=== PATIENT | female | born 1965 | race African-American/Black ===

== ENCOUNTER 2020-01-27 21:57 | Emergency (ER) | payer SELFPAY ==
[~2020-01-27] VITALS: Ht 177.8 cm; Wt 64.9 kg
[2020-01-27 22:16] VITALS: BP 118/72
--- NOTE | 2020-01-27 22:16 | NUR ---
ED Nurse Note: Patient walked in to ED requesting for a shot of invega. Patient aao x 4 and ambulatory. Patient was seen at [facility] 4 hours ago today. Patient no acute distress noted.
--- NOTE | 2020-01-27 22:22 | Emergency Room Report ---
History of Present Illness General Chief Complaint: Medication Refill Source: Patient Present Illness HPI 54-year-old female with a history of schizophrenia. She came in wanting a shot of her psych medication. She checked then and went to the room and promptly got up and left. I did not see this patient. This is second time she did this today. Allergies: Coded Allergies: No Known Allergies (Unverified , 01/27/20) COVID-19 Screening Contact w/high risk pt: No Experienced COVID-19 symptoms?: No COVID-19 Testing performed RISK MANAGEMENT SPECIALIST: No Nursing Documentation-[facility] History Of Psychiatric Problem: Yes - schizophrenia Physical Exam Vital Signs Date Time Temp Pulse Resp B/P (MAP) Pulse Ox O2 Delivery O2 Flow Rate FiO2 01/27/20 22:04 98.4 87 18 111/69 (83) 97 Room Air Medical Decision Making Diagnostic Impression: Primary Impression: Encounter for medication refill Additional Impression: Patient left without being seen Last Vital Signs Date Time Temp Pulse Resp B/P (MAP) Pulse Ox O2 Delivery O2 Flow Rate FiO2 01/27/20 22:04 98.4 87 18 111/69 (83) 97 Room Air Status: unchanged Disposition: LEFT W/OUT BEING SEEN Condition: Stable Florencio Kwok MD Jan 27, 2020 22:22
== END 2020-01-27 22:30 | disposition left against medical advice (07) ==
LOC: EMR 22:23
DX: Z76.0 Encounter for issue of repeat prescription (principal); Z53.21 Procedure and treatment not carried out due to patient leaving prior to being seen by health care provider

== ENCOUNTER → 2020-01-27 | Emergency (ER) | payer SELFPAY ==
[~2020-01-27] VITALS: Ht 177.8 cm; Wt 69.4 kg
[~2020-01-27] MED LIST: FUROSEMIDE20 M1 ORAL; K-DUR20 MEQ ORAL
--- NOTE | 2020-01-27 14:47 | NUR ---
ED Nurse Note: Called patient. patient not in waiting room.
--- NOTE | 2020-01-27 15:01 | NUR ---
ED Nurse Note: Patient in restroom.
[2020-01-27 15:41] VITALS: BP 115/69
--- NOTE | 2020-01-27 15:41 | NUR ---
ED Nurse Note: Pt walked in to er from the street. per pt. she is here for [facility].
[2020-01-27 16:04] VITALS: BP 115/69
--- NOTE | 2020-01-27 16:04 | NUR ---
ED Nurse Note: Pt left without being seen by ERMD. Pt AAOx4, ambulatory and took all personal belongings.
--- NOTE | 2020-01-27 22:11 | Emergency Room Report ---
History of Present Illness General Chief Complaint: Medication Refill Source: Patient Present Illness Allergies: Coded Allergies: No Known Allergies (Unverified , 01/27/20) COVID-19 Screening Contact w/high risk pt: No Experienced COVID-19 symptoms?: No COVID-19 Testing performed RIGGING SLINGER: No Nursing Documentation-[facility] Past Medical History: No History, Except For History Of Psychiatric Problem: Yes Physical Exam Vital Signs Date Time Temp Pulse Resp B/P (MAP) Pulse Ox O2 Delivery O2 Flow Rate FiO2 01/27/20 15:37 98.2 82 19 115/69 (84) 98 Room Air Medical Decision Making Diagnostic Impression: Primary Impression: Patient left without being seen ER Course Patient left without being seen Last Vital Signs Date Time Temp Pulse Resp B/P (MAP) Pulse Ox O2 Delivery O2 Flow Rate FiO2 01/27/20 16:04 98.2 19 115/69 98 Room Air 01/27/20 15:41 82 Status: unchanged Disposition: LEFT W/OUT BEING SEEN Condition: Stable Referrals: NOT CHOSEN IPA/,REFERRING (PCP) Wil Torres MD Jan 27, 2020 22:11
== END | disposition left against medical advice (07) ==
LOC: EMR 16:00
DX: Z76.0 Encounter for issue of repeat prescription (principal); Z53.21 Procedure and treatment not carried out due to patient leaving prior to being seen by health care provider

== ENCOUNTER 2020-01-29 12:37 | Emergency (ER) | payer SELFPAY ==
[~2020-01-29] VITALS: Ht 167.6 cm; Wt 60.3 kg
[2020-01-29 13:00] VITALS: BP 98/62
--- NOTE | 2020-01-29 13:00 | NUR ---
ED Nurse Note: Pt brought in by ambulance from the streets after walking into traffic. Pt reports hearing voices. Pt denies HI/SI at this time. Pt reports hx of schizophrenia and is non compliant with meds since being released from [facility]. Pt refers to self in 3rd person. Calm and cooperative. Respirations even and unlabored on room air. Vitals stable as documented. A+Ox4.
--- NOTE | 2020-01-29 13:54 | NUR ---
ED Nurse Note: sandwiches and juices provided to patient. Spoke with patient regarding 5150 status. Pt aware of need to stay in her room and that she cannot leave d/t hold. Pt aware and verbalized understanding, saying "I won't go anywhere. I have been on 5150 before."
--- NOTE | 2020-01-29 14:24 | NUR ---
ED Nurse Note: pt placed in psych gown. Belongings placed in psych locker 1.
[2020-01-29 15:00] VITALS: BP 106/69
--- NOTE | 2020-01-29 16:14 | Emergency Room Report ---
History of Present Illness General Chief Complaint: Behavioral Complaint Source: Patient Present Illness HPI 54 YO Female presents to the ED on 5150 hold by [employer]. She is reporting increasing depression, anxiety and auditory hallucinations. Patient reports in September she did receive Invega injection which did help her however she was unable to have follow-up or receive additional doses. She reports previous psychiatric hospitalizations. Denies drug use. She reports increased depression and having difficulty concentrating. She denies SI or HI at the moment. She was placed on hold by PD for danger to self as she was responding to internal stimuli and walking out into the middle of the street with traffic. Patient describes hearing voices of people that she recognizes however not knowing where they are. No other aggravating or relieving factors. Allergies: Coded Allergies: No Known Allergies (Unverified , 01/27/20) COVID-19 Screening Contact w/high risk pt: No Experienced COVID-19 symptoms?: No COVID-19 Testing performed BRANCH ACCOUNT MANAGER: No Patient History Past Medical History: see triage record, psych hx Past Surgical History: none Pertinent Family History: none Last Menstrual Period: unk Now: No Reviewed Nursing Documentation: PMH: Agreed; PSxH: Agreed Nursing Documentation-PMH Past Medical History: No History, Except For History Of Psychiatric Problem: Yes - schizophrenia Review of Systems All Other Systems: negative except mentioned in HPI Physical Exam Vital Signs Date Time Temp Pulse Resp B/P (MAP) Pulse Ox O2 Delivery O2 Flow Rate FiO2 01/29/20 12:45 98.4 85 16 89/60 (70) 97 Room Air Sp02 EP Interpretation: reviewed, normal General Appearance: no apparent distress, alert, GCS 15, non-toxic, other - Disheveled Head: normocephalic, atraumatic Eyes: bilateral eye normal inspection, bilateral eye PERRL ENT: hearing grossly normal, normal voice Neck: full range of motion Respiratory: lungs clear, normal breath sounds, no respiratory distress, no wheezing, speaking full sentences Cardiovascular #1: regular rate, rhythm, edema - bilateral non-pitting edema to the feet. 2+ Gastrointestinal: normal bowel sounds, non tender, soft, non-distended, no guarding Rectal: deferred Genitourinary: normal inspection, no CVA tenderness Musculoskeletal: back normal, normal range of motion, gait/station normal, non- tender Neurologic: alert, motor strength/tone normal, oriented x3, sensory intact, responsive, speech normal Psychiatric: judgement/insight normal, no suicidal/homicidal ideation, depressed affect, other - Pt. midway through eval, began talking about herself in 3rd person. She will at times stare off in silence in the middle of a sentence. Suicide Risk Assessment: Suicidal Ideation: No Had intent to initiate attempt: Yes Pt's plan for suicide attempt: No Has means to complete attempt: Yes Skin: no rash, normal color Medical Decision Making PA Attestation Dr. Torres is my supervising Physician whom patient management has been discussed with. Diagnostic Impression: Primary Impression: Behavioral disorder ER Course 54 YO Female presents to the ED on 5150 hold by [employer]. She is reporting increasing depression, anxiety and auditory hallucinations. Patient reports in September she did receive Invega injection which did help her however she was unable to have follow-up or receive additional doses. She reports previous psychiatric hospitalizations. Denies drug use. She reports increased depression and having difficulty concentrating. She denies SI or HI at the moment. She was placed on hold by PD for danger to self as she was responding to internal stimuli and walking out into the middle of the street with traffic. Patient describes hearing voices of people that she recognizes however not knowing where they are. No other aggravating or relieving factors. Pt. presents to the ED c/o anxiety, restlessness, and nightmares s/p starting back on his medications after abruptly stopping them for 1 week while incarcerated. his medications are: ativan and citalopram. Pt is hyperactive, and has a very anxious and restless affect. Ddx considered but are not limited to OD, SI/HI, psychosis, UTI, intoxication Vital signs: are WNL, pt. is afebrile. H&PE are most consistent with behavioral/mental health issue. Pt. is responding to internal stimuli on occasion. ORDERS: -CBC, CMP: WNL -UA: negative for infection see results attached. -UDS: all negative -Salicylates and Acetaminophen - no acute intoxication. ED INTERVENTIONS: -None required at this time. Patient has been cooperative. DISPOSITION: The patient is medically cleared for psychiatric evaluation and placement Labs Test 01/29/20 15:00 01/29/20 16:00 White Blood Count 6.1 K/UL (4.8-10.8) Red Blood Count 3.68 M/UL (4.20-5.40) Hemoglobin 11.1 G/DL (12.0-16.0) Hematocrit 34.7 % (37.0-47.0) Mean Corpuscular Volume 94 FL (80-99) Mean Corpuscular Hemoglobin 30.0 PG (27.0-31.0) Mean Corpuscular Hemoglobin Concent 31.9 G/DL (32.0-36.0) Red Cell Distribution Width 13.5 % (11.6-14.8) Platelet Count 254 K/UL (150-450) Mean Platelet Volume 7.3 FL (6.5-10.1) Neutrophils (%) (Auto) 72.4 % (45.0-75.0) Lymphocytes (%) (Auto) 15.7 % (20.0-45.0) Monocytes (%) (Auto) 10.0 % (1.0-10.0) Eosinophils (%) (Auto) 0.8 % (0.0-3.0) Basophils (%) (Auto) 1.0 % (0.0-2.0) Sodium Level 142 MMOL/L (136-145) Potassium Level 3.8 MMOL/L (3.5-5.1) Chloride Level 106 MMOL/L (98-107) Carbon Dioxide Level 28 MMOL/L (21-32) Anion Gap 8 mmol/L (5-15) Blood Urea Nitrogen 12 mg/dL (7-18) Creatinine 0.8 MG/DL (0.55-1.30) Estimat Glomerular Filtration Rate > 60 mL/min (>60) Glucose Level 106 MG/DL (74-106) Calcium Level 8.8 MG/DL (8.5-10.1) Total Bilirubin 0.4 MG/DL (0.2-1.0) Aspartate Amino Transf (AST/SGOT) 32 U/L (15-37) Alanine Aminotransferase (ALT/SGPT) 32 U/L (12-78) Alkaline Phosphatase 76 U/L (46-116) Total Protein 8.0 G/DL (6.4-8.2) Albumin 3.5 G/DL (3.4-5.0) Globulin 4.5 g/dL Albumin/Globulin Ratio 0.8 (1.0-2.7) Salicylates Level 1.9 ug/mL (2.8-20) Acetaminophen Level < 2 MCG/ML (10-30) Serum Alcohol < 3 mg/dL Urine Opiates Screen Negative (NEGATIVE) Urine Barbiturates Screen Negative (NEGATIVE) Phencyclidine (PCP) Screen Negative (NEGATIVE) Urine Amphetamines Screen Negative (NEGATIVE) Urine Benzodiazepines Screen Negative (NEGATIVE) Urine Cocaine Screen Negative (NEGATIVE) Urine Marijuana (THC) Screen Negative (NEGATIVE) Last Vital Signs Date Time Temp Pulse Resp B/P (MAP) Pulse Ox O2 Delivery O2 Flow Rate FiO2 01/29/20 12:45 98.4 85 16 89/60 (70) 97 Room Air Disposition: HOME, SELF-CARE Condition: Stable Signed Out To: Belle Foster Jan 29, 2020 16:14
[2020-01-29 17:00] VITALS: BP 109/72
[2020-01-29 17:20] LABS: EOSINOPHILS % (AUTO) 0.8 % (0.0-3.0); HEMATOCRIT 34.7 % (37.0-47.0); HEMOGLOBIN 11.1 G/DL (12.0-16.0); LYMPHOCYTES % (AUTO) 15.7 % (20.0-45.0); MEAN CORPUSCULAR VOLUME 94 FL (80-99); NEUTROPHILS % (AUTO) 72.4 % (45.0-75.0); PLATELET COUNT 254 K/UL (150-450); RED BLOOD COUNT 3.68 M/UL (4.20-5.40); RED CELL DISTRIBUTION WIDTH 13.5 % (11.6-14.8); WHITE BLOOD COUNT 6.1 K/UL (4.8-10.8)
[2020-01-29 17:23] LABS: ANION GAP 8 mmol/L (5-15); BLOOD UREA NITROGEN 12 mg/dL (7-18); CALCIUM 8.8 MG/DL (8.5-10.1); CARBON DIOXIDE 28 MMOL/L (21-32); CHLORIDE 106 MMOL/L (98-107); CREATININE 0.8 MG/DL (0.55-1.30); POTASSIUM 3.8 MMOL/L (3.5-5.1); SODIUM 142 MMOL/L (136-145)
[2020-01-29 17:27] LABS: ALANINE AMINOTRANSFERASE 32 U/L (12-78); ALBUMIN 3.5 G/DL (3.4-5.0); ALBUMIN/GLOBULIN RATIO 0.8 (1.0-2.7); ALKALINE PHOSPHATASE 76 U/L (46-116); ASPARTATE AMINO TRANSFERASE 32 U/L (15-37); BILIRUBIN,TOTAL 0.4 MG/DL (0.2-1.0)
--- NOTE | 2020-01-29 19:11 | NUR ---
HAND-OFF: Report given to CORWIN Schultz. Pt in stable condition; plan of care endorsed.
--- NOTE | 2020-01-29 19:30 | NUR ---
ED Nurse Note: Recieved report from am nurse to resume care, pt is sitting on side of bed, awake and alert, pt is on 5150 hold and waiting for psych placement for suicidal ideations, pt refers to herself as "her" and states she remains suicidal and denies homicidal ideations and has noted auditory halluciantions as pt speaks to self, denies pain, has sitter at bedside for constant observatons, room environment checked, will resume care and continue to closely monitor under precutions.
[2020-01-29 23:00] VITALS: BP 104/66
--- NOTE | 2020-01-29 23:00 | NUR ---
ED Nurse Note: Pt continues to sleep quietly, no sob or lbored breathing noted, v/s taken, no acute changes or increased distress noted, pt is on 5150 hold with suicidal precautions, sitter remains at bedside for constant observation, will continue to monitor while pt waiting for psych placement.
--- NOTE | 2020-01-30 03:10 | NUR ---
ED Nurse Note: Pt suddennly awakened in room, jumped out of bed and stating "ok im ready", pt still appears to be under the influence, pt offered food and water, refused and followed commands to go back to bed without complications, pt remains on S.I. precautions, no attempts or changes made, sitter at bedside, will continue to closely monitor under S.I. precautions.
[2020-01-30 06:00] VITALS: BP 108/59
--- NOTE | 2020-01-30 06:00 | NUR ---
ED Nurse Note: No acute changes or increased distress noted, pt continues to sleep in bed, sitter at bedside, pt remains on 5150 hold and suicidal precautions, pt is waiting for psych placement, will continue to monitor for any acute changes or distress.
--- NOTE | 2020-01-30 08:05 | NUR ---
ED Nurse Note:pt. is awake ,had her breakfast, compliant with treatment, sitter is at the bed side
--- NOTE | 2020-01-30 09:55 | Emergency Room Report ---
Physical Exam Vital Signs Date Time Temp Pulse Resp B/P (MAP) Pulse Ox O2 Delivery O2 Flow Rate FiO2 01/29/20 12:45 98.4 85 16 89/60 (70) 97 Room Air Medical Decision Making Homeless Attestation Patient is marcus. Patient has been medically screened and is stable for outpatient follow up Diagnostic Impression: Primary Impression: Behavioral disorder ER Course Assumed care of the patient from the previous provider at approximately 0 600. Please refer to initial note for full history and physical exam. Briefly, 54-year-old female history of psychiatric disorder presenting for anxiety and auditory hallucinations as well as worsening depression. She was placed on 5150 hold by [employer] for lying in the middle of the street. At the time of signout labs have returned within normal limits and the patient is medically cleared for psychiatric evaluation. Dr. Montilla has evaluated the patient and determined she is not danger to self and may be discharged. She recommended 100 mg of Haldol decanoate however the patient refused stating that she was taking Invega and does not want to mix medications. Patient would like to try to get herself into a psychiatric center on her own. She is requesting referrals and discharge but will try to go back to the psychiatric facility she previously was admitted to where she states she can continue getting the Invega. Laboratory Tests Test 01/29/20 15:00 01/29/20 16:00 White Blood Count 6.1 K/UL (4.8-10.8) Red Blood Count 3.68 M/UL (4.20-5.40) L Hemoglobin 11.1 G/DL (12.0-16.0) L Hematocrit 34.7 % (37.0-47.0) L Mean Corpuscular Volume 94 FL (80-99) Mean Corpuscular Hemoglobin 30.0 PG (27.0-31.0) Mean Corpuscular Hemoglobin Concent 31.9 G/DL (32.0-36.0) L Red Cell Distribution Width 13.5 % (11.6-14.8) Platelet Count 254 K/UL (150-450) Mean Platelet Volume 7.3 FL (6.5-10.1) Neutrophils (%) (Auto) 72.4 % (45.0-75.0) Lymphocytes (%) (Auto) 15.7 % (20.0-45.0) L Monocytes (%) (Auto) 10.0 % (1.0-10.0) Eosinophils (%) (Auto) 0.8 % (0.0-3.0) Basophils (%) (Auto) 1.0 % (0.0-2.0) Sodium Level 142 MMOL/L (136-145) Potassium Level 3.8 MMOL/L (3.5-5.1) Chloride Level 106 MMOL/L (98-107) Carbon Dioxide Level 28 MMOL/L (21-32) Anion Gap 8 mmol/L (5-15) Blood Urea Nitrogen 12 mg/dL (7-18) Creatinine 0.8 MG/DL (0.55-1.30) Estimated Glomerular Filtration Rate > 60 mL/min (>60) Glucose Level 106 MG/DL (74-106) Calcium Level 8.8 MG/DL (8.5-10.1) Total Bilirubin 0.4 MG/DL (0.2-1.0) Aspartate Amino Transferase (AST) 32 U/L (15-37) Alanine Aminotransferase (ALT) 32 U/L (12-78) Alkaline Phosphatase 76 U/L (46-116) Total Protein 8.0 G/DL (6.4-8.2) Albumin 3.5 G/DL (3.4-5.0) Globulin 4.5 g/dL Albumin/Globulin Ratio 0.8 (1.0-2.7) L Salicylates Level 1.9 ug/mL (2.8-20) L Acetaminophen Level < 2 MCG/ML (10-30) L Serum Alcohol < 3 mg/dL Urine Opiates Screen Negative (NEGATIVE) Urine Barbiturates Screen Negative (NEGATIVE) Phencyclidine (PCP) Screen Negative (NEGATIVE) Urine Amphetamines Screen Negative (NEGATIVE) Urine Benzodiazepines Screen Negative (NEGATIVE) Urine Cocaine Screen Negative (NEGATIVE) Urine Marijuana (THC) Screen Negative (NEGATIVE) Last Vital Signs Date Time Temp Pulse Resp B/P (MAP) Pulse Ox O2 Delivery O2 Flow Rate FiO2 01/30/20 06:00 98.5 80 16 108/59 100 Room Air Disposition: HOME, SELF-CARE Condition: Stable Referrals: NOT CHOSEN IPA/,REFERRING (PCP) Rayray Conrad MD Jan 30, 2020 09:55
[2020-01-30] MEDS: Haloperidol Decanoate (Long Acting) 50mg Inj IM ONE ×2 (10:00→11:10)
--- NOTE | 2020-01-30 10:20 | NUR ---
ED Nurse Note:dr. Montilla came to evaluate pt. and she lishted hold up with giving one time dose of antipsychotic med- pt. refused to take prescribed medication, was notified and he spoke to pt. about it, personal belongings were all returned to pt., she is alert and oriented , walkes with steady gait
[2020-01-30 10:38] VITALS: BP 108/59
--- NOTE | 2020-01-30 11:10 | NUR ---
Homeless Discharge: Patient is being discharged from medical care. Awake, alert and oriented x3. After care instructions, including referral to community resources were given. Patient verbalized understanding of After care instructions; at this time patient does not request medications, equipment or placement. Patient signed patient consent in the medical record for patient destination upon discharge. All medical devices such as IV and ID band were removed. Patient ambulated out with all personal belongings with steady gait.
--- NOTE | 2020-01-31 08:30 | Consultation ---
DATE OF CONSULTATION: 01/30/2020 HISTORY OF PRESENT ILLNESS: This is a 54-year-old black female with history of schizophrenia who has been admitted to the hospital on a 5150 after she was walking in the traffic. The patient insist that she needs to go to the hospital. She does not endorse any suicidal or homicidal ideation. She stated that she needs to get her long acting shots. She has not been to any psychiatrist and she has been noncompliant. She is talking. She is referring to herself as a third person. The patient is presenting with disorganized speech. The patient stated that she wanted to be in the hospital because [place] cases are increasing and she is afraid to catch Coronavirus. PAST PSYCHIATRIC HISTORY: She stated she was diagnosed with schizophrenia and she has had several psychotic hospitalizations. PAST MEDICAL HISTORY: She denies any medical issues; however, her lower extremities are edematous. ALLERGIES: 01:16 SUBSTANCE ABUSE HISTORY: She is denying any illicit drug use. Her system is negative for drugs. MENTAL STATUS EXAMINATION: The patient is alert, oriented times self, place, and situation. Mood is dysphoric. Affect is blunted. Congruent with mood. Thought process is concrete. Thought content, no suicidal or homicidal ideation. Cognition intact. Insight and judgment is limited. ASSESSMENT: [place] I Psychotic disorder. Rule out schizophrenia. [place] II Deferred. [place] III None Dun[place] IV Homelessness. [place] V 55. PLAN: 1. The patient was prescribed Haldol Decanoate 100 mg IM. 2. The patient refused the medication and requested Celexa. 3. The patient's 5150 hold will be discontinued. 4. The patient to be discharged as she is not imminent danger to self or others. Toy Montilla M.D. DR: Rosie JOB#: [id number] CC:
== END 2020-01-30 11:11 | disposition home or self-care (01) ==
LOC: EMR 13:30
DX: F91.9 Conduct disorder, unspecified (principal)
CPT/HCPCS: 36415; 80053; 80307; 85025; 96372; 99285; G0480; J1631